=== PATIENT | female | born 1960 | race Caucasian/White ===

== ENCOUNTER 2018-08-28 09:29 | Emergency (ER) | payer MEDICAID ==
[~2018-08-28] VITALS: Wt 89.0 kg
[2018-08-28] MEDS ORDERED: ONDANSETRON 4 MG INJ IV STA (10:09)
[2018-08-28] MEDS ORDERED: HYDROmorphONE 1 MG/ML SYG IV STA (10:09)
[2018-08-28] MEDS ORDERED: CIPR500T4 PO (11:18)
[2018-08-28] MEDS ORDERED: HYDR-3980 PO (11:18)
[2018-08-28] MEDS ORDERED: METR500T PO (11:18)
--- NOTE | 2018-08-28 11:21 | ERD ---
ER Documentation Chief Complaint Chief Complaint AP INTERMITTENT X MOS SEND BY CLINIC FOR LABS HPI Is a 57-year-old female who is here for left lower quadrant pain she said diarrhea off and on the past week but this morning had a normal bowel movement. She saw her doctor was sent here for evaluation. No fever no back pain no dysu lizette hematuria. There is occasional radiation the pain to the left lower quadrant to the left back but not now. Denies any history of colon etiologies in the past ROS All systems reviewed and are negative except as per history of present illness. Medications Home Meds Active Scripts Hydrocodone/Acetaminophen ([place] 10-325 Tablet) 1 Each Tablet, 1 TAB PO Q6H PRN for PAIN, #16 TAB Prov:SAMANTHA TOBIASSTMARYS A. DO 08/28/18 Metronidazole* (Flagyl*) 500 Mg Tablet, 500 MG PO TID for 7 Days, TAB Prov:LEKKOS,APOSTOLOS A. DO 08/28/18 Ciprofloxacin Hcl* (Ciprofloxacin Hcl*) 500 Mg Tablet, 500 MG PO BID for 7 Days, TAB Prov:SAMANTHA TOBIASSTOLOS A. DO 08/28/18 Allergies Allergies: Coded Allergies: No Known Allergy (Unverified , 08/28/18) PMhx/Soc Medical and Surgical Hx: pt denies Medical Hx, pt denies Surgical Hx History of Surgery: No Hx Neurological Disorder: No Hx Respiratory Disorders: No Hx Cardiac Disorders: No Hx Psychiatric Problems: No Hx Miscellaneous Medical Probl: No Hx Alcohol Use: No Hx Substance Use: No Hx Tobacco Use: No Smoking Status: Never smoker FmHx Family History: No coronary disease Physical Exam Vitals Vital Signs Date Temp Pulse Resp B/P (MAP) Pulse Ox O2 O2 Flow FiO2 Time Delivery Rate 08/28/18 98.7 93 18 170/93 99 09:32 (118) Physical Exam Const: Well-developed, well-nourished Head: Atraumatic, normocephalic Eyes: Normal Conjunctiva, PERRLA, EOMI, normal sclera, no nystagmus ENT: Normal External Ears, Nose and Mouth, moist mucus membranes. Neck: Full range of motion. No meningismus, no lymphadenopathy. Resp: Clear to auscultation bilaterally, no wheezing, rhonchi, rales Cardio: Regular rate and rhythm, no murmurs, S1 S2 present Abd: Soft, mild left lower quadrant tenderness, non distended. Normal bowel sounds, no guarding or rebound, no pulsitile abdominal masses or bruits Skin: No petechiae or rashes, no ecchymosis , no maculopapular rash Back: No midline or flank tenderness Ext: No cyanosis, or edema, FROM x 4, normal inspection, neurovascularly intact x 4 Neur: Awake and alert, STR 5/5 x 4, sensation intact x 4, no focal findings, cerebellum intact Psych: Normal Mood and Affect Result Diagram: 08/28/18 1005 08/28/18 1005 Results 24 hrs Laboratory Tests Test 08/28/18 10:05 White Blood Count 6.6 10^3/ul Red Blood Count 4.42 10^6/ul Hemoglobin 12.6 g/dl Hematocrit 39.6 % Mean Corpuscular Volume 89.6 fl Mean Corpuscular Hemoglobin 28.5 pg Mean Corpuscular Hemoglobin Concent 31.8 g/dl Red Cell Distribution Width 12.4 % Platelet Count 337 10^3/UL Mean Platelet Volume 9.8 fl Immature Granulocytes % 0.300 % Neutrophils % 53.1 % Lymphocytes % 38.8 % Monocytes % 5.2 % Eosinophils % 1.7 % Basophils % 0.9 % Nucleated Red Blood Cells % 0.0 /100WBC Immature Granulocytes # 0.020 10^3/ul Neutrophils # 3.5 10^3/ul Lymphocytes # 2.6 10^3/ul Monocytes # 0.3 10^3/ul Eosinophils # 0.1 10^3/ul Basophils # 0.1 10^3/ul Nucleated Red Blood Cells # 0.0 10^3/ul Sodium Level 142 mmol/L Potassium Level 3.9 mmol/L Chloride Level 106 mmol/L Carbon Dioxide Level 27 mmol/L Anion Gap 9 Blood Urea Nitrogen 11 mg/dl Creatinine 0.55 mg/dl Est Glomerular Filtrat Rate mL/min > 60 mL/min Glucose Level 107 mg/dl Calcium Level 9.2 mg/dl Total Bilirubin 0.4 mg/dl Direct Bilirubin 0.00 mg/dl Indirect Bilirubin 0.4 mg/dl Aspartate Amino Transf (AST/SGOT) 23 IU/L Alanine Aminotransferase (ALT/SGPT) 25 IU/L Alkaline Phosphatase 101 IU/L Total Protein 7.4 g/dl Albumin 4.1 g/dl Globulin 3.30 g/dl Albumin/Globulin Ratio 1.24 Current Medications Medications Dose Sig/Hitesh Start Time Status Last (Trade) Ordered Route PRN Stop Time Admin Dose Reason Admin 1 mg ONCE STAT 08/28/18 DC Hydromorphone IV 10:09 HCl 08/28/18 10:11 (Dilaudid) Ondansetron 4 mg ONCE STAT 08/28/18 DC HCl (Zofran IV 10:09 Inj) 08/28/18 10:11 Procedures/MDM DIAGNOSTIC IMAGING REPORT Patient: LISA BURNS : 1960 Age: 57 Sex: F MR #: [id number] DOS: 08/28/18 1009 Ordering MD: LAURA TOBIAS DO Location: E/R Room/Bed: PROCEDURE: CT Abdomen and pelvis without contrast. CLINICAL INDICATION: Left lower quadrant and flank pain TECHNIQUE: CT scan of the abdomen and pelvis without contrast was performed on a multidetector high-resolution CT scan. . Coronal and sagittal reformatted images were obtained from the axial source images. Standard CT scan of the abdomen pelvis without contrast protocols were performed. The total exam CTDI equals 15.5 mGy and the total exam DLP equals 874.89 mGy-cm. One or more of the following dose reduction techniques were used: - Automated exposure control. - Adjustment of the mA and/or kV according to patient size. Use of iterative reconstruction technique. Dicom images are available COMPARISON: None. FINDINGS: There diverticular changes involving the proximal sigmoid and distal descending colon with moderate wall thickening and mild to moderate pericolonic induration/stranding consistent with acute diverticulitis. Negative for free air or abscess. No evidence of abdominal pelvic lymphadenopathy. Additional diverticular changes of the remainder of the descending, transverse and ascending colon and more distal sigmoid colon without diverticulitis in these regions. Remainder the colon is unremarkable. An appendix is not visualized however no CT evidence of appendicitis. Stomach and small bowel unremarkable. The kidneys are normal in size without calcified calculi or hydronephrosis bilaterally. There are multiple left parapelvic renal cysts largest involving the inferior pole measuring 2.2 cm. No other intra renal masses. No evidence ureteral calcified calculi or dilatation. Urinary bladder unremarkable. Anteverted anteflexed uterus with otherwise unremarkable. No adnexal masses. Liver spleen pancreas adrenal glands and gallbladder are unremarkable. No evidence of biliary ductal dilation. Aorta unremarkable. Abdominal pelvic wall unremarkable. Lung bases unremarkable. Degenerative changes of the lower thoracic and lumbar spine without acute osseous findings are osteoblastic/osteolytic lesions. IMPRESSION: 1. Acute diverticulitis involving the proximal sigmoid colon as described above without abscess or free air. An underlying mass cannot be excluded and recommend clinical correlation and follow-up. 2. Additional diverticular changes of the more distal sigmoid colon, remaining descending colon and transverse colon without diverticulitis in this distribution. 3. Left renal parapelvic cyst. No other intra masses. No calcified urinary calculi or obstructive uropathy bilaterally. Addendum: Dr. Tobias was telephoned this results on 08/28/2018 at 1105 hours. RPTAT:AAJJ Physician Ashley Date Time Electronically viewed and signed by Physician Ashley on 08/28/2018 11:17 BM/ CC: LAURA TOBIAS DO [id number] Patient has diverticulitis without perforation or abscess. We will discharge home with Cipro yl and [place] Departure Diagnosis: Primary Impression: Diverticulitis Condition: Stable Patient Instructions: Diverticulitis LAURA TOBIAS DO August 28, 2018 11:21
[2018-08-28 11:41] VITALS: BP 148/65; PULSE 87; RESP 18
== END 2018-08-28 11:42 | disposition home or self-care (01) ==
LOC: E/R 09:29
DX: K57.32 Diverticulitis of large intestine without perforation or abscess without bleeding (principal)
CPT/HCPCS: 36415; 74176; 80053; 85025; Z7502